=== PATIENT | male | born 1935 | race Caucasian/White ===

== ENCOUNTER 2017-03-08 13:46 | Emergency (ER) | payer MEDICARE ==
[2017-03-08 12:57] LABS: BASOPHILS 0.5 %; BASOPHILS ABSOLUTE 0.03 10/3/uL (0.0-0.16); EOSINOPHILS 2.1 %; EOSINOPHILS ABSOLUTE 0.13 10/3/uL (0.0-0.53); ER CBC TAT 0 Hrs 03 Mins; HEMATOCRIT 43.4 % (40.0-51.0); HEMOGLOBIN 15.1 g/dL (13.6-17.8); IMMATURE GRANULOCYTES 0.3 %; IMMATURE GRANULOCYTES ABSOLUTE 0.02 10/3/uL (0.0-0.11); LYMPHOCYTES 18.8 %; LYMPHOCYTES ABSOLUTE 1.16 10/3/uL (0.67-4.30); MANUAL DIFF NO %; MEAN CORPUS HGB CONC 34.8 g/dL (32.0-36.0); MEAN CORPUSCULAR HEMOGLOB 36.6 pg (26.0-34.0); MEAN CORPUSCULAR VOLUME 105.1 fL (80-100); MONOCYTES 8.7 %; MONOCYTES ABSOLUTE 0.54 10/3/uL (0.21-1.20); NEUTROPHILS 69.6 %; PLATELET COUNT 141 10/3/uL (150-400); RBC DISTRIBUTION WIDTH 12.6 % (12.0-16.0); RED CELL COUNT 4.13 10/6/uL (4.7-6.1); WHITE BLOOD CELLS 6.2 10/3/uL (4.5-10.5)
[2017-03-08 13:05] LABS: INTERNATIONAL NORMAL RATI 2.2 UNITS (-); PROTIME (NOT ORD) 24.2 SEC (12.0-14.5)
[2017-03-08 13:12] LABS: BUN (BLOOD UREA NITROGEN) 14 MG/DL (6-23); CHEST PAIN PROFILE TAT 0 Hrs 18 Mins; CHLORIDE, SERUM 108 MMOL/L (96-112); CO2 (CARBON DIOXIDE) 31 MMOL/L (24-34); CREATININE 1.07 MG/DL (0.70-1.30); GFR AFRICAN AMERICAN 76 ML/MIN (>=60); GFR NON AFRICAN AMERICAN 65 ML/MIN (>=60); GLUCOSE, SERUM 90 MG/DL (60-99); POTASSIUM, SERUM 4.6 MMOL/L (3.5-5.3); SODIUM, SERUM 143 MMOL/L (135-148); TROPONIN I <0.02 NG/ML (<0.05)
[2017-03-08 13:13] LABS: CALCIUM, SERUM 9.6 MG/DL (8.5-10.4)
[~2017-03-08 13:46] MED LIST: ASAB PO; C25 PO; C5 PO; CIP5 PO; CO Q-10200 MG PO; FISH OIL1200 MG PO; GLUCCHONDR PO; ISOPTIN SR180 MG PO; LOP25 PO; REQUIP5 MG PO; ZOCOR40 PO; ZYVOXPO PO
== END 2017-03-08 14:31 | disposition home or self-care (01) ==
LOC: ER 13:46
PROVIDERS: Emergency Medicine
DX: R55 Syncope and collapse (principal); R00.1 Bradycardia, unspecified; Z86.718 Personal history of other venous thrombosis and embolism; Z86.711 Personal history of pulmonary embolism; F17.200 Nicotine dependence, unspecified, uncomplicated; Z95.1 Presence of aortocoronary bypass graft; Z79.82 Long term (current) use of aspirin; Z79.01 Long term (current) use of anticoagulants; Z79.899 Other long term (current) drug therapy
CPT/HCPCS: 80048; 83735; 84484; 85025; 85610; 85730; 93005; 93225; 99284